=== PATIENT | female | born 1955 | race Caucasian/White ===

== ENCOUNTER 2018-05-24 09:05 | Inpatient (IN) ==
[2018-05-24] MEDS ORDERED: FAMOTIDINE 20 MG/2 ML VIAL IVP ONE (09:28)
[2018-05-24] MEDS ORDERED: MORPHINE SULFATE 4 MG/1 ML IVP ONE (09:28)
[2018-05-24] MEDS ORDERED: ONDANSETRON 4 MG/2 ML VIAL IVP ONE ×2 (09:28→10:22)
[2018-05-24] MEDS ORDERED: Sodium Chloride 0.9% 1,000 ML PRIMARY IV ONE ×2 (09:28→10:39)
[2018-05-24 09:37] LABS: BASOPHILS # (AUTO) 0.03 10*3/UL; BASOPHILS % (AUTO) 0.4 % (0-1); EOSINOPHILS # (AUTO) 0.17 10*3/UL; EOSINOPHILS % (AUTO) 2.2 % (0-8); Hematocrit [HCT] 44.5 % (37.0-47.0); Hemoglobin [HGB] 15.8 g/dL (12.0-16.0); LYMPHOCYTES # (AUTO) 1.21 10*3/uL; MEAN CORPUSCULAR HEMOGLOBIN 34.7 PG (27-31); MEAN CORPUSCULAR HGB CONC 35.5 g/dL (33-37); MEAN CORPUSCULAR VOLUME 97.8 FL (81-99); MEAN PLATELET VOLUME 11.4 FL (7.4-12.2); MONOCYTES # (AUTO) 0.44 10*3/UL (0.3-0.8); MONOCYTES % (AUTO) 5.6 % (5-15); RED BLOOD COUNT 4.55 10^6/uL (4.20-5.40)
[2018-05-24 09:39] LABS: PLATELET MORPHOLOGY COMMENT NORMAL MORPHOLOGY (NORM); RBC MORPHOLOGY COMMENT NORMAL MORPHOLOGY (NORM); WBC MORPHOLOGY COMMENT NORMAL MORPHOLOGY (NORM)
[2018-05-24 09:48] LABS: SERUM ALBUMIN 4.4 g/dL (3.5-4.8)
[2018-05-24] MEDS ORDERED: Acetaminophen 1000mg Inj 1,000 MG/100 ML VIAL IV ONE ×2 (10:23→10:25)
[2018-05-24] MEDS ORDERED: HYDROmorphone 2 MG/1 ML ONE (10:42)
--- NOTE | 2018-05-24 12:15 | DI ---
CT Abdomen/Pelvis W Contrast,05/24/2018 9:29 AM: Clinical History: Abdominal pain Previous Exam: None at this facility. Findings: Multiple helically acquired CT images are obtained through the abdomen and pelvis following the intra venous administration of 75 cc of Isovue 300, and demonstrates a small extrusion of abdominal fat thr ough and defect in the right hemidiaphragm. This defect measures approximately 2 cm and there is extr usion of mesenteric fat. The liver, gallbladder, spleen, pancreas, adrenals and kidneys are unremarkable. The gallbladder is n ormal. Peripheral vascular calcifications are seen. Diffuse degenerative changes of the spine are seen with near complete loss at L5/S1. The anterior abdominal wall subcutaneous fat is normal. The urinary bladder is unremarkable. The uter us and ovaries are grossly normal. Impression: There is a 2 cm defect within the right posterior hemidiaphragm with extrusion of some subdiaphragmat ic fat. This may represent a congenital weakness of the right hemidiaphragm or a traumatic process. Flor murray clinically.
[2018-05-24 12:26] LABS: BILIRUBIN,URINE NEGATIVE (NEG); CLARITY,URINE CLEAR (CLEAR); COLOR,URINE YELLOW (Y); GLUCOSE, URINE (UA) NEGATIVE (NEG); OCCULT BLOOD,URINE NEGATIVE (NEG); PROTEIN,URINE NEGATIVE (NEG); UROBILINOGEN,URINE 0.2 EU/dL (0.2)
[2018-05-24 12:27] LABS: URINE SAMPLE TYPE CLEAN CATCH URINE
--- NOTE | 2018-05-24 14:20 | PDOC ---
HPI - History of Present Illness Date of Service: 05/24/18 Time of Service: 14:35 Chief Complaint: Right upper quadrant abdominal pain on and off for 3 weeks History of Present Illness: This is a 62 years old female with medical history significant for history of hypertension, history of coronary artery disease with previous WA about 3 years ago she had 2 stents, history of previous stroke that caused some right-sided weakness resolved, hypercholesterolemia who was sent to the hospital from a clinic in [place] because of history of right upper quadrant abdominal pain. The pain started about 3 weeks ago was intermittent felt in the right upper quadrant goes to the back initially sharp and then achy after she eats. The pain is worsened by eating. Now is becoming more constant and more severe and because of that she went to the clinic and she was sent here. Evaluation in the ER revealed elevated lipase and the impression was a gallbladder disease versus pancreatitis and hence the admission. She did receive pain medication and that helped her pain. Currently she described her pain maybe about 5 out of 10. Past Medical History Medical History: 1. History of coronary artery disease with previous stents about 3 years ago. 2. History of stroke that affected the right side resolved about 8 years ago. 3. History of hypertension Surgical History: 1. History of left endarterectomy. 2. History of previous 2 stents. 3. History of lumbar surgery Family History: Reviewed an Not Pertinent Past Social History: She smokes a pack and a half since age 13, drink 3 beers a day with a shot, no drugs. Lives in [place]. Tobacco Use: Current Every Day Smoker In the Past 12 Months, Have Used or Abuse Any of the Following Substance: None Alcohol Use: Other (She drinks about 3 beers and a shot the day.) Medication / Allergies Home Medications: Home Medications Medication Instructions Recorded Confirmed Type Amlodipine Besylate 1 tab PO DAILY #0 tab 06/25/16 05/24/18 Rx Atorvastatin Calcium [Lipitor] 1 tab PO QHS #0 tab 06/25/16 05/24/18 Rx Lisinopril 1 tab PO DAILY #0 tab 06/25/16 05/24/18 Rx Carvedilol 1 tab PO DAILY 05/24/18 05/24/18 History Allergies/Adverse Reactions: Allergies Allergy/AdvReac Type Severity Reaction Status Date / Time Estrogens Allergy Anaphylaxis Verified 05/24/18 13:59 Review of Systems - Review of Systems All Systems: Reviewed & No Additional Complaints Except as Stated Exam - Vitals Vital Signs: Vital Signs Temperature 97.4 F Temperature Source Temporal Artery Scan Pulse Rate [Pulse Oximeter] 86 Respiratory Rate 20 Blood Pressure [Left Arm] 144/96 Pulse Ox 95 Oxygen Delivery Method Room Air Height 4 ft 11 in Weight 126 lb 6.4 oz - General General Appearance: No Acute Distress, Cooperative - Head Head Exam: Normal Inspection - Eye Eye Exam: POSITIVE: Normal Appearance Eye: Abnormal Pupil: Right Eye - ENT ENT Exam: POSITIVE: Normal Exam - Neck Neck Exam: Normal Inspection - Respiratory Respiratory Exam: POSITIVE: Clear to Auscultation - Bilaterally - Cardiovascular Cardiovascular Exam: POSITIVE: RRR - GI/Abdominal GI/Abdominal Exam: POSITIVE: Normal Bowel Sounds, Non Distended, Soft, No O rganomegaly Additional GI/Abdominal Exam Details: There is some tenderness noted in the right upper quadrant. - Rectal Rectal Exam: POSITIVE: Deferred - External Exam: POSITIVE: Deferred Exam: POSITIVE: Deferred - Extremities Extremities Exam: POSITIVE: Normal Inspection - Back Back Exam: POSITIVE: Normal Inspection - Neurological Neurological Exam: POSITIVE: Alert, Oriented x 3, CN II-XII Intact, No Facial Droop, Speech Intact / Clear, Moves All Extremities Equally - Psychiatric Psychiatric Exam: POSITIVE: Normal Affect - Integumentary Integumentary Exam: POSITIVE: Normal Color Results - Labs CBC and BMP: 05/24/18 09:32 05/24/18 09:32 - Imaging Status: Report Reviewed by Me (CT Impression: There is a 2 cm defect within the right posterior hemidiaphragm with extrusion of some subdiaphragmatic fat. This may represent a congenital weakness of the right hemidiaphragm or a traumatic process. Correlate clinically. Gallbladder and pancreas reported to be normal.) Assessment and Plan - Patient Problems (1) Right upper quadrant pain Current Visit: Yes Status: Acute Comment: Possible pancreatitis versus gallbladder disease. I think will puts on clear liquids, IV fluid and pain medications. Will order ultrasound of her gallbladder tomorrow. I did speak with Dr. Herman and he will see her tomorrow. Code(s): R10.11 - Right upper quadrant pain (2) Hypertension Current Visit: Yes Status: Acute Comment: Continue previous medications Code(s): I10 - Essential (primary) hypertension (3) History of coronary artery disease Current Visit: Yes Status: Acute Comment: Continue beta patricia, Lipitor and aspirin Code(s): Z86.79 - Personal history of other diseases of the circulatory system
[2018-05-24] MEDS ORDERED: HYDROmorphone 2 MG/1 ML IVP PRN (14:31)
[2018-05-24] MEDS ORDERED: ONDANSETRON 4 MG/2 ML VIAL IVP PRN ×2 (14:32→14:34)
[2018-05-24] MEDS ORDERED: LIDOCAINE W/ SODIUM BICARB 0.5 ML SYR SUBD PRN (14:34)
[2018-05-24] MEDS ORDERED: ACETAMINOPHEN 325 MG TABLET PO PRN (14:34)
[2018-05-24] MEDS ORDERED: CALCIUM CARBONATE 500 MG (TUMS) CHEWABLE TABLET PO PRN (14:34)
[2018-05-24] MEDS ORDERED: DOCUSATE 100 MG CAPSULE PO PRN (14:34)
[2018-05-24] MEDS ORDERED: NICOTINE 21 MG /DAY PATCH TRANSDERM ONE (14:51)
[2018-05-24] MEDS ORDERED: NICOTINE 21 MG /DAY PATCH TRANSDERM SCH (15:00)
[2018-05-24] MEDS: Lactated Ringers 1,000 ML PRIMARY IV SCH ×2 (15:29→23:19)
[2018-05-24] MEDS: KETOROLAC 15 MG/1 ML VIAL IVP PRN (19:13)
[2018-05-25] MEDS: KETOROLAC 15 MG/1 ML VIAL IVP PRN (04:46)
[2018-05-25 04:48] LABS: BASOPHILS # (AUTO) 0.02 10*3/UL; BASOPHILS % (AUTO) 0.5 % (0-1); EOSINOPHILS # (AUTO) 0.16 10*3/UL; EOSINOPHILS % (AUTO) 3.9 % (0-8); Hematocrit [HCT] 38.5 % (37.0-47.0); Hemoglobin [HGB] 13.6 g/dL (12.0-16.0); LYMPHOCYTES # (AUTO) 1.37 10*3/uL; MEAN CORPUSCULAR HEMOGLOBIN 35.6 PG (27-31); MEAN CORPUSCULAR HGB CONC 35.3 g/dL (33-37); MEAN CORPUSCULAR VOLUME 100.8 FL (81-99); MEAN PLATELET VOLUME 11.3 FL (7.4-12.2); MONOCYTES # (AUTO) 0.25 10*3/UL (0.3-0.8); NEUTROPHILS # (AUTO) 2.33 10*3/UL; NEUTROPHILS % (AUTO) 56.1 % (50-80); RED BLOOD COUNT 3.82 10^6/uL (4.20-5.40)
[2018-05-25 04:57] LABS: BLOOD UREA NITROGEN 10 mg/dL (7-22); LIPASE 256 IU/L (23-300); SERUM ALBUMIN 3.4 g/dL (3.5-4.8)
[2018-05-25 05:02] LABS: PLATELET MORPHOLOGY COMMENT NORMAL MORPHOLOGY (NORM); RBC MORPHOLOGY COMMENT NORMAL MORPHOLOGY (NORM); WBC MORPHOLOGY COMMENT NORMAL MORPHOLOGY (NORM)
--- NOTE | 2018-05-25 05:05 | PDOC ---
Abdomen/Flank HPI - General Chief Complaint: Abdomen Pain Stated Complaint: ABD Pain Date Seen by Provider: 05/24/18 Time Seen by Provider: 09:15 Source: POSITIVE: Patient, Spouse Exam Limitations: POSITIVE: No limitations Nurse's Notes Reviewed & Considered: Yes - History of Present Illness Initial Comments: The patient is a 62-year-old female. Patient states that for the past 3 weeks she has had upper abdominal pain, especially over the right epigastric area. She states that her pain has been especially bad over the last 48 hours. Patient states that she attempted to eat a Arabic muffin about 20 minutes [employer] and this seemed to exacerbate her pain. She's not had any associated vomiting which she has been nauseated. No diarrhea. No melena, hematochezia, hematemesis, dysuria or hematuria. She's had no known fevers. She has had no history of abdominal surgery. She states that she drinks 3 or 4 beers a day and 3 or 4 "shots" of hard liquor daily. She smokes one and a half pack of cigarettes daily. Body Location Affected: REPORTS: Abdomen Timing: REPORTS: Intermittent, Getting Worse Duration: >1 week (3 weeks; worse over the past 2 days.) Severity: Moderate Quality: REPORTS: "Pain" Abdominal Pain Onset Location: REPORTS: RUQ, Epigastric Abdominal Pain Radiation: REPORTS: No radiation Context: REPORTS: None Modifying Factors: improves with: Nothing Associated Symptoms: REPORTS: Nausea Similar Symptoms Previously: Yes (past above) Recent Care Received: REPORTS: Denies Any Prior Injuries Related to Current Complaint?: No - Patient Home Medications Home Medications: Home Medications Amlodipine Besylate 1 tab PO DAILY #0 tab 06/25/16 Atorvastatin Calcium [Lipitor] 1 tab PO QHS #0 tab 06/25/16 Lisinopril 1 tab PO DAILY #0 tab 06/25/16 Carvedilol 1 tab PO DAILY 05/24/18 - Patient Allergies Allergies/Adverse Reactions: Allergies Allergy/AdvReac Type Severity Reaction Status Date / Time Estrogens Allergy Anaphylaxis Verified 05/24/18 13:59 Past Medical History - heen HEENT History: Denies History Cardiovascular History: Hypertension, Hyperlipidemia, Previous NC Additional Cardiovasular History: 2 Stents placed for NC 5 years ago Respiratory History: Denies History Gastrointestinal History: Denies History, Hepatitis Genitourinary History: Denies History Endocrine History: Denies History Musculoskeletal History: Denies History Prosthesis or Implant: No Neurological History: CVA 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 Blood Disorders: Denies History Additional Blood Disorders History: HEPATITIS C Psychiatric History: Denies History History of Sexually Transmitted Diseases: No Female Reproductive History: Denies History Obstetrical History: Denies History Cancer History: Denies History In Past Year Been Physically Harmed or Verbally Threatened: No History of MDRO: No History of Other Communicable Diseases: No Tobacco Use: Current Every Day Smoker Alcohol Use: Heavy Type of alcohol normally used: Beer, Hard Liquor In the Past 12 Months, Have Used or Abuse Any Substance: None Previous Surgical History: Yes Type / Date of Surgery: X2, CARDIAC CATH WITH STENTS X2. left carotid endarderectomy Anesthesia Reactions: No Malignant Hyperthermia: No Significant Family History: No pertinent family hx Past Medical History Reviewed: Reviewed - No Changes ROS - Limitations ROS Limitations: No Limitations Constitution: REPORTS: Denies Symptoms Cardiovascular: REPORTS: Denies Cardiac Symptoms Respiratory: REPORTS: Denies Resp Symptoms Neurological: REPORTS: Denies Neuro Symptoms Gastrointestinal: REPORTS: Abdominal Pain, Nausea Endocrine: REPORTS: Denies Symptoms Musculoskeletal: REPORTS: Denies MS Symptoms Genitourinary: REPORTS: Denies Symptoms Eyes: REPORTS: Denies Symptoms ENT: REPORTS: Denies Symptoms Skin: REPORTS: Denies Skin Symptoms Lympathic: REPORTS: Denies Lympathic Symptoms Immunologic: POSITIVE: Denies Symptoms Psychiatric: POSITIVE: Denies Psych Symptoms Abdominal/Flank Pain PE - General Appearance General Appearance: POSITIVE: Alert, Cooperative, No Acute Distress, No Evidence of Trauma - HEENT HEENT: POSITIVE: Head Inspection Nml, Eyes Inspection Nml, Ears Inspection Nml, Nose Inspection Nml, Oral/Dental Inspect. Nml, Pharynx Inspect. Nml, PERRL, EOMI - Neck Neck: POSITIVE: Normal Inspection, No Apparent Injury - Respiratory Respiratory: POSITIVE: No Respiratory Distress, Breath Sounds Normal, Chest Non- Tender - Cardiovascular Cardiovascular: POSITIVE: Regular Rate and Rhythm, Heart Sounds Normal, Equal Pulses, Strong Pulses Peripheral Pulses: Radial (R): 2+, Radial (L): 2+ - Chest Chest: POSITIVE: Non Tender - Abdomen Abdomen: Soft: (All Quadrants), Normal Bowel Sounds: (All Quadrants), Denies Tenderness: (LLQ), (RLQ), No Splenomegaly: (All Quadrants), No Hepatomegaly: (All Quadrants), No Guarding: (All Quadrants), No Rebound: (All Quadrants), No Palpable Pulse: (All Quadrants), No Palpabale Mass: (All Quadrants), No Distention: (All Quadrants), No Rigidity: (All Quadrants), Tenderness Noted: (RUQ), (LUQ) Additional Abdominal Details: Abdominal examination shows bowel sounds to be present. Patient has pain on direct palpation just right of the epigastrium. No masses, organomegaly or rebound. - Back Back: POSITIVE: Normal Inspection - Skin Skin: POSITIVE: Intact, Normal For Race, Warm, Dry, No Rash - Extremities Extremity: Non-Tender: (All Extremities), Normal ROM: (All Extremities), Normal Inspection: (All Extremities) - Neurological Neurological: POSITIVE: Affect Apporpriate, Oriented X3, dope weigh operator Normal As Tested, Motor Normal, Sensation Normal - Psychological Psychiatric: POSITIVE: Affect Appropriate, Mood Appropriate Images - Complete Complete: 1 - Pain on palpation and area of described pain Abdomen Progress - Results Reviewed by me Xrays/CTs/US Reviewed by me: Yes Discussed with Radiologist: Yes Radiology Findings: CT scan abdomen and pelvis read by radiologist as showing no definite pathology. Lab Results Reviewed by Me: Yes (lipase 467) CBC and BMP: 05/24/18 09:32 05/24/18 09:32 Lab Results:: Laboratory Results 05/24/18 05/24/18 05/24/18 09:28 09:32 09:32 WBC 7.88 RBC 4.55 Hgb 15.8 Hct 44.5 MCV 97.8 MCH 34.7 H MCHC 35.5 RDW Std Deviation 46.9 RDW Coeff of Maddie 13.3 Plt Count 158 MPV 11.4 Immature Gran % (Auto) 0.4 Neut % (Auto) 76.0 Lymph % (Auto) 15.4 [place] % (Auto) 5.6 Eos % (Auto) 2.2 Baso % (Auto) 0.4 Immature Gran # (Auto) 0.03 Neut # (Auto) 6.00 Lymph # (Auto) 1.21 Maries # (Auto) 0.44 Eos # (Auto) 0.17 Baso # (Auto) 0.03 WBC Morphology Comment Normal morphology Plt Morphology Comment Normal morphology RBC Morph Comment Normal morphology Sodium 138 Potassium 4.3 Chloride 111 Carbon Dioxide 20 L Anion Gap 7 BUN 21 Creatinine 1.0 Estimated GFR 56 BUN/Creatinine Ratio 21.00 H Glucose 101 Calculated Osmolality 288.0 Calcium 9.4 Total Bilirubin 0.4 AST 48 H ALT 25 Alkaline Phosphatase 101 Total Protein 7.6 Albumin 4.4 Globulin 3.1 Albumin/Globulin Ratio 1.40 Amylase 87 Lipase 467 H Ur Collection Type Clean catch urine Urine Color Yellow Urine Clarity Clear Urine pH 5.0 Ur Specific Lester 1.010 Urine Protein Negative Urine Glucose (UA) Negative Urine Ketones Negative Urine Occult Blood Negative Urine Nitrate Negative Urine Bilirubin Negative Urine Urobilinogen 0.2 Ur Leukocyte Esterase Negative Ur Culture Indicated? Culture not set - Patient's Progress Pain Medication Addressed: POSITIVE: Yes (Patient given 4 mg morphine sulfate and a gram of acetaminophen for pain, along with 4 mg of Zofran) School/Work Release Addressed: POSITIVE: Not Applicable Re-examine Time: 12:30 Re-Examine Comment: Patient advised of the results of laboratory and radiologic evaluation. Diagnosis is pancreatitis. Case discussed with hospitalist spout positioner, and patient admitted for further evaluation and treatment. Status: POSITIVE: Improved (Patient got considerably relief from analgesics and IV fluid and antinauseants administered in the emergency room.), Re-Examined - Consult Consult (If Yes, Name of Consulting MD & Time Called): Yes (Dr. Felder, hospitalist, [id number]) Consulting MD will see pt:: POSITIVE: [facility] Admit Counseled: POSITIVE: Patient, RE: Lab Results, RE: Radiology Results, RE: DX, RE: Need for F/U Patient Care Time - Estimated PCT Patient Care Time (In Minutes): 50 Vital Signs - Recent Vital Signs Vital Signs: Vital Signs (Last 8 hours) Temp Pulse Resp BP Pulse Ox 05/25/18 04:39 97.1 F 77 20 128/84 96 05/25/18 00:16 98.2 F 69 18 118/64 94 05/24/18 21:00 98 F 75 20 132/76 95 - VS Reviewed Vital Signs Reviewed: Yes Discharge Clinical Impression: Pancreatitis Discharge Disposition: Admit to Inpatient Date Decision to Admit to Inpatient: 05/24/18 Time Decision to Admit to Inpatient: 12:35
[2018-05-25 06:32] VITALS: O2SAT 97
[2018-05-25] MEDS: Lactated Ringers 1,000 ML PRIMARY IV SCH (08:02)
[2018-05-25] MEDS ORDERED: CARVEDILOL 3.125 MG TABLET PO SCH (09:00)
[2018-05-25] MEDS ORDERED: PANTOPRAZOLE IV 40 MG VIAL IVP SCH (09:00)
[2018-05-25] MEDS ORDERED: AmLODIPine Tab 5 MG TABLET PO SCH (09:00)
[2018-05-25] MEDS ORDERED: LISINOPRIL 20 MG TABLET PO SCH (09:00)
--- NOTE | 2018-05-25 09:35 | DI ---
US Abdomen Limited,05/25/2018 7:00 AM: Clinical History: Right sided abdominal pain Previous Exam: CT abdomen pelvis performed May 24, 2018. Findings: Multiple transabdominal grayscale and color Doppler sonographic images are obtained through the right upper quadrant. The liver, pancreas, gallbladder and right kidney are unremarkable. The kidney measures 8.8 cm in length without hydronephrosis nor nephrolithiasis. The common bile duct measures 7 mm. Impression: Normal right upper quadrant ultrasound.
[2018-05-25 11:12] VITALS: BP 134/91; RESP 17; TEMP 96.9
--- NOTE | 2018-05-25 12:36 | DCSUMMARY ---
Hospitalization Summary Admit Date: 05/24/2018 Discharge Date: 05/25/18 Hospital Course: Discharge diagnoses 1. Mild pancreatitis 2. Possible gastritis 3. History of coronary artery disease with previous stents 4. History of CVA that's resolved 8 years ago 5. History of hypertension 6. History of left carotid endarterectomy 7. History of previous 2 stents 8. History of lumbar surgery 9. 2 cm defect within the right posterior hemidiaphragm with extrusion of some subdiaphragmatic fat, patient had the previous emergency back surgery and likely secondary to that. Hospital course This is a 62 years old female medical history significant for hypertension, history of coronary artery disease, history of previous stroke who was sent to the hospital from the clinic in [place] because of history of right upper quadrant abdominal pain. The pain started about 3 weeks before admission was intermittent felt in the right upper quadrant goes to the back initially sharp and then achy after she eats. The pain is worsened by eating. Because it became more constant and severe she went to the clinic and then she was sent here. Evaluation in the ER revealed elevated lipase and the impression was gallbladder disease versus pancreatitis and hence the admission. She did admit to drinking about 3 beers a night with a shot. CT of abdomen showed 2 cm defect within the right posterior hemidiaphragm with extrusion of diaphragmatic fat patient had an emergency back surgery in the past and probably it was secondary to that. Patient was admitted to the hospital was put on IV fluids and clear liquid. She was also put on pain medication. We did ultrasound of the abdomen which was negative for gallbladder disease. The next day she felt much improved and we did consult surgery. The impression is also pancreatitis or gastritis. Whether there is a functional gallbladder disorder also I think time will tell. We did discharge her on Protonix. If pain persisted or recurred then she may need to have the HIDA scan to look at the function of the gallbladder. Did advise the patient to quit drinking and she agreed. Laboratory Results 05/25/18 05/25/18 04:29 04:29 WBC 4.15 L RBC 3.82 L Hgb 13.6 Hct 38.5 MCV 100.8 H MCH 35.6 H MCHC 35.3 RDW Std Deviation 48.4 RDW Coeff of Maddie 13.4 Plt Count 105 L MPV 11.3 Immature Gran % (Auto) 0.5 Neut % (Auto) 56.1 Lymph % (Auto) 33.0 [place] % (Auto) 6.0 Eos % (Auto) 3.9 Baso % (Auto) 0.5 Immature Gran # (Auto) 0.02 Neut # (Auto) 2.33 Lymph # (Auto) 1.37 [place] # (Auto) 0.25 L Eos # (Auto) 0.16 Baso # (Auto) 0.02 WBC Morphology Comment Normal morphology Plt Morphology Comment Normal morphology RBC Morph Comment Normal morphology Sodium 136 Potassium 3.7 L Chloride 110 Carbon Dioxide 23 Anion Gap 3 L BUN 10 Creatinine 0.8 Estimated GFR > 60 BUN/Creatinine Ratio 12.50 Glucose 77 L Calculated Osmolality 279.0 Calcium 8.9 Total Bilirubin 0.8 D AST 51 H ALT 26 Alkaline Phosphatase 73 Total Protein 6.0 L Albumin 3.4 L Globulin 2.6 Albumin/Globulin Ratio 1.30 Lipase 256 Discharge instruction Diet low-fat Activity as started Medications Current Medication(s) Medication Instructions Recorded Confirmed Type Amlodipine Besylate 1 tab PO DAILY #0 tab 06/25/16 05/24/18 Rx Atorvastatin Calcium [Lipitor] 1 tab PO QHS #0 tab 06/25/16 05/24/18 Rx Lisinopril 1 tab PO DAILY #0 tab 06/25/16 05/24/18 Rx Carvedilol 1 tab PO DAILY 05/24/18 05/24/18 History Pantoprazole Sodium [Protonix] 40 mg PO DAILY #30 tab 05/25/18 Rx Follow-up with PCP in 1-2 weeks Condition at discharge was stable for discharge Exam - Vitals Vital Signs: Vital Signs Temperature 96.9 F Temperature Source Temporal Artery Scan Pulse Rate [Pulse Oximeter] 62 Respiratory Rate 17 Blood Pressure [Left Arm] 134/91 Pulse Ox 97 Oxygen Delivery Method Room Air Height 4 ft 11 in Weight 126 lb 6.4 oz - General General Appearance: No Acute Distress, Cooperative - Head Head Exam: Normal Inspection - Eye Eye Exam: POSITIVE: Normal Appearance - ENT ENT Exam: POSITIVE: Normal Exam - Neck Neck Exam: Normal Inspection - Respiratory Respiratory Exam: POSITIVE: Clear to Auscultation - Bilaterally - Cardiovascular Cardiovascular Exam: POSITIVE: RRR - GI/Abdominal GI/Abdominal Exam: POSITIVE: Normal Bowel Sounds, Non Tender, Non Distended, Soft - Rectal Rectal Exam: POSITIVE: Deferred - External Exam: POSITIVE: Deferred - Extremities Extremities Exam: POSITIVE: Normal Inspection - Back Back Exam: POSITIVE: Normal Inspection - Neurological Neurological Exam: POSITIVE: Alert, Oriented x 3, CN II-XII Intact, No Facial Droop, Speech Intact / Clear - Psychiatric Psychiatric Exam: POSITIVE: Normal Affect Patient Problems - Patient Problem List (1) Right upper quadrant pain Status: Acute Code(s): R10.11 - Right upper quadrant pain Category: Medical (2) Hypertension Status: Acute Code(s): I10 - Essential (primary) hypertension Category: Medical (3) History of coronary artery disease Status: Acute Code(s): Z86.79 - Personal history of other diseases of the circulatory system Category: Medical
--- NOTE | 2018-05-25 13:32 | CONSULT ---
Consult Note - Consult Consult Date: 05/25/18 Reason for Consult: PreOp Consulation : General Surgery Requesting Physician: Dr. Felder Primary Care Provider: Martha Durand MD - History of Present Illness History of Present Illness: This is a 62-year-old female who comes in with three-week history of abdominal pain. She states the pain is midepigastric right upper quadrant. The pain has subsequently resolved. Patient had elevated lipase on admission yesterday. Lipase is return to normal today. Ultrasound shows no evidence of cholelithiasis. CT scan shows everything is unremarkable except a posterior diaphragmatic hernia. Patient does tell me that she had back surgery in 2016. There is a back surgical responsive area the herniation. Past Medical History Medical History: 1. History of coronary artery disease with previous stents about 3 years ago. 2. History of stroke that affected the right side resolved about 8 years ago. 3. History of hypertension Surgical History: 1. History of left endarterectomy. 2. History of previous 2 stents. 3. History of lumbar surgery Family History: Reviewed an Not Pertinent Past Social History: She smokes a pack and a half since age 13, drink 3 beers a day with a shot, no drugs. Lives in [place]. Tobacco Use: Current Every Day Smoker In the Past 12 Months, Have Used or Abuse Any of the Following Substance: None Alcohol Use: Other (She drinks about 3 beers and a shot the day.) Medication / Allergies Home Medications: Home Medications Medication Instructions Recorded Confirmed Type Amlodipine Besylate 1 tab PO DAILY #0 tab 06/25/16 05/24/18 Rx Atorvastatin Calcium [Lipitor] 1 tab PO QHS #0 tab 06/25/16 05/24/18 Rx Lisinopril 1 tab PO DAILY #0 tab 06/25/16 05/24/18 Rx Carvedilol 1 tab PO DAILY 05/24/18 05/24/18 History Pantoprazole Sodium [Protonix] 40 mg PO DAILY #30 tab 05/25/18 Rx Allergies/Adverse Reactions: Allergies Allergy/AdvReac Type Severity Reaction Status Date / Time Estrogens Allergy Anaphylaxis Verified 05/25/18 08:01 Results - Labs CBC and BMP: 05/25/18 04:29 05/25/18 04:29 Exam - Vitals Vital Signs: Vital Signs Temperature 96.9 F Temperature Source Temporal Artery Scan Pulse Rate [Pulse Oximeter] 62 Respiratory Rate 17 Blood Pressure [Left Arm] 134/91 Pulse Ox 97 Oxygen Delivery Method Room Air Height 4 ft 11 in Weight 126 lb 6.4 oz - GI/Abdominal GI/Abdominal Exam: POSITIVE: Normal Bowel Sounds, Non Tender, Non Distended, Soft, No Masses, No Hepatomegaly, No Splenomegaly, No Organomegaly Assessment and Plan - Patient Problems (1) Pancreatitis Current Visit: Yes Status: Acute Code(s): K85.90 - Acute pancreatitis without necrosis or infection, unspecified - Assessment / Plan Additional Assessment/Plan Details: This point 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 She should stay on a PPI for 8 weeks. She'll follow up as need be.
[2018-05-25] MEDS ORDERED: ATORVASTATIN 40 MG TABLET PO SCH (21:00)
== END 2018-05-25 15:00 | disposition home or self-care (01) | DRG 440 ==
LOC: ER 09:05 → MED/SURG 12:41
PROVIDERS: ADMIT Internal Medicine; ATTEND Internal Medicine